=== PATIENT | female | born 1955 | race Caucasian/White ===

== ENCOUNTER 2020-04-02 09:33 | Emergency (ER) | payer OTHER ==
[~2020-04-02] VITALS: Ht 162.6 cm; Wt 88.5 kg
[2020-04-02] MEDS ORDERED: COZAAR25 MG PO (09:48)
[2020-04-02] MEDS ORDERED: KAPSPARGO SPRIN25 MG PO (09:48)
[2020-04-02] MEDS ORDERED: ZITHROMAX500 MG PO (13:38)
== END 2020-04-02 14:22 | disposition home or self-care (01) ==
LOC: ER 09:33
DX: R60.0 Localized edema (principal); Z20.828 Contact with and (suspected) exposure to other viral communicable diseases

== ENCOUNTER → 2020-07-23 | Outpatient (CLI) | payer OTHER ==
[~2020-07-23] MED LIST: COZAAR25 MG PO; KAPSPARGO SPRIN25 MG PO; ZITHROMAX500 MG PO
== END | disposition home or self-care (01) ==
LOC: OFIC 805 12:15
PROVIDERS: ATTEND Otolaryngology
DX: R09.81 Nasal congestion (principal); J32.8 Other chronic sinusitis; J34.3 Hypertrophy of nasal turbinates

== ENCOUNTER → 2020-09-23 | Outpatient (CLI) | payer OTHER | END | disposition home or self-care (01) | LOC: RAD 16:54 | PROVIDERS: ATTEND Orthopaedic Surgery | DX: M54.5 Low back pain (principal); M16.0 Bilateral primary osteoarthritis of hip; M17.0 Bilateral primary osteoarthritis of knee ==

== ENCOUNTER → 2024-04-24 13:55 | Outpatient (CLI) | payer OTHER ==
[~2024-04-24 13:55] MED LIST changes: +CORICIDIN HBP PO
== END | disposition home or self-care (01) ==
LOC: MRI 13:55
PROVIDERS: ATTEND Emergency Medicine Pediatric Emergency Medicine
DX: M75.102 Unspecified rotator cuff tear or rupture of left shoulder, not specified as traumatic (principal)
CPT/HCPCS: 73221

== ENCOUNTER 2025-01-16 13:15 | Emergency (ER) | payer OTHER ==
[~2025-01-16] VITALS: Ht 165.1 cm; Wt 79.8 kg
[2025-01-16 14:10] LABS: BASO % 0.2 % (0.1-1.2); EOS # 0.26 (0.04-0.54); EOS % 3.0 % (0.7-7.0); LYMPH # 3.19 (1.18-3.74); LYMPH % 36.6 % (19.3-53.1); MEAN PLATELET VOLUME 10.30 fl (9.4-12.4); MONO # 0.79 (0.24-0.82); MONO % 9.1 % (4.7-12.5); NEUT # 4.44 (1.56-6.13); NEUT % 50.9 % (34.0-71.1); RED CELL DISTRIBUTION WIDTH 13.5 % (11.6-14.4)
[2025-01-16 15:04] LABS: COVID-19 AG NEGATIVE (NEGATIVE)
== END 2025-01-16 16:08 | disposition home or self-care (01) ==
LOC: ER 13:15
PROVIDERS: General Practice
DX: B34.9 Viral infection, unspecified (principal); R05.8 Other specified cough; Z20.822 Contact with and (suspected) exposure to COVID-19